=== PATIENT | female | born 1965 | race Caucasian/White ===

== ENCOUNTER → 2024-12-15 | Outpatient (CLI) | payer SELFPAY ==
--- NOTE | 2024-12-15 | EMB_PTH ---
PATIENT: CHRISTOPH ODELL [facility] U#:[id number] AGE/SX: 59/F ROOM: RE12/15/[address]: GRETEL Fernandez : 1965 BED: DIS: 12/15/2024 SPEC #: [id number] RECD: 12/15/24 12:31 STATUS: SUSAN REQ #: [id number] WANDA: 12/15/24 00:[address]: Amira Blas NP DEPT: SURGICAL PATHOLOGY RECD BY: Nahum Fleming ENTERED: 12/15/24 15:11 SP TYPE: ENDOM BX/C ANN DR: GRETEL Del [place] Tissues: A - Endometrium, NOS Procedures: Surgery Specimen Level IV HEADER OPERATION: Endometrial biopsy PRE-OP DIAGNOSIS: Post menopausal bleeding TISSUE SUBMITTED: A- Endometrial tissue MICROSCOPIC DIAGNOSIS A. Endometrium, biopsy: * Inactive endometrium MICROSCOPIC DESCRIPTION Slides are reviewed. GROSS DESCRIPTION A. Received in formalin labeled the patient's name and date of is a 1.6 x 0.9 x <0.1 cm aggregate of clear mucoid material and flecks of red apparent tissue. Entirely submitted in 1 cassette. Entirety of the specimen unlikely to survive processing. [place] 12/15/2024 CPT:25771
[2024-12-21 13:08] LABS: HPV APTIMA, High Risk Negative (Negative)
== END | disposition home or self-care (01) ==
LOC: LABSPEC 12:20
PROVIDERS: PCP Nurse Practitioner Family; Visit Provider Nurse Practitioner Women's Health
DX: Z12.4 Encounter for screening for malignant neoplasm of cervix (principal); N95.0 Postmenopausal bleeding
CPT/HCPCS: 87624; 88175; 88305; G0145

== ENCOUNTER → 2025-01-04 | Outpatient (CLI) | payer SELFPAY ==
--- NOTE | 2025-01-04 14:08 | CT_ITS ---
PROCEDURE: ABDOMEN/PELVIS WITHOUT CONT 01/04/2025 REASON FOR EXAM: BACK PAIN, HISTORY STONES Left flank pain. TECHNIQUE: Procedure Code: [id number] Modality: CT Procedure: ABDOMEN/PELVIS WITHOUT CONT Noncontrast technique limits evaluation of the abdominal and pelvic viscera. Coronal and Sagittal reconstruction series were provided. One or more dose reduction techniques were used (e.g., Automated exposure control, adjustment of the mA and/or kV according to patient size, use of iterative reconstruction technique). RADIATION DOSE SUMMARY: CTDlvol: 6.35 mGy DLP: 321.88 mGycm COMPARISON: None FINDINGS: Lung bases: The lung bases are clear. Liver: Normal size. No obvious mass. Gallbladder: Gallbladder is unremarkable. Spleen: Normal size. Pancreas: Normal size. No surrounding inflammation. Adrenals: Unremarkable. Kidneys: No urolithiasis. No hydronephrosis. Bladder: The urinary bladder is almost empty. Reproductive Organs: Uterus is unremarkable. Bowel: Nonspecific bowel gas pattern. Appendix: Unremarkable. Lymph nodes: Unremarkable. Vasculature: The abdominal aorta and IVC contours are normal. Noncontrast technique limits evaluation. Peritoneum / Retroperitoneum: Unremarkable Bones: Disc space narrowing at the L5-S1 level. Levoconvex scoliosis. CT/Abdomen/Pelvis without Cont IMPRESSION: No acute abnormality is seen. No evidence of renal calculi or ureteral obstruc tion at this time. Reading Location: [id number]
== END | disposition home or self-care (01) ==
PROVIDERS: PCP Nurse Practitioner Family; Referring Provider Urology; Visit Provider Urology
DX: M54.9 Dorsalgia, unspecified (principal); Z87.442 Personal history of urinary calculi
CPT/HCPCS: 74176

== ENCOUNTER → 2025-01-21 | Outpatient (CLI) | payer SELFPAY ==
--- NOTE | 2025-01-21 13:53 | MRI_ITS ---
EXAM: PELVIS W/WO CONTRAST 01/21/2025 CLINICAL HISTORY: URETHRAL DIVERTICULM. TECHNIQUE: Procedure Code: [id number] Modality: MR Procedure: PELVIS W/WO CONTRAST Multiplanar and multisequence images were obtained intravenous gadolinium contrast. CONTRAST: 14 cc Clariscan IV. COMPARISON: CT dated 01/04/2025. FINDINGS: Numerous nabothian cysts are seen within the cervix, the largest of which measures 1.2 cm. A few small rounded low densities within the posterior myometrium, the largest of which measures 1.3 cm, likely representing small fibroids. A trace amount of fluid is noted within the endometrial cavity. Both ovaries are identified. A 2 cm cyst is noted within the left ovary, with a fluid-fluid level likely representing aging blood products. A small focus of air is noted within the urinary bladder. Otherwise the urinary bladder appears unremarkable. The urethra appears unremarkable. No MR evidence of a urethral diverticulum. The remainder of the visualized pelvic contents appear unremarkable. The visualized osseous structures appear unremarkable. MRI/Pelvis W/WO Contrast IMPRESSION: 1. Numerous nabothian cysts. 2. Small uterine fibroids. 3. Left ovarian cyst measuring 2 cm. Reading Location: [id number]
== END | disposition home or self-care (01) ==
LOC: MRI 13:52
PROVIDERS: PCP Nurse Practitioner Family; Referring Provider Urology; Visit Provider Urology
DX: N36.1 Urethral diverticulum (principal)
CPT/HCPCS: 72197; A9575; A4216